=== PATIENT | male | born 1960 | race Caucasian/White ===

== ENCOUNTER 2018-08-26 08:25 | Inpatient (IN) ==
[2018-08-26] MEDS ORDERED: Chlorhexidine Gluconate 2% 1 Pack (2 Cloths) TOPICAL SCH (09:15)
[2018-08-26] MEDS ORDERED: Metoprolol Tartrate 25 MG Tablet PO SCH (09:15)
[2018-08-26] MEDS ORDERED: Sodium Chlor 0.9% Inj 250 ML ONE (09:54)
[2018-08-26] MEDS ORDERED: ceFAZolin 2 GM Premix Inj 2 GM/50 ML PIGGYBACK IV.SIG SCH (10:00)
[2018-08-26] MEDS ORDERED: Vancomycin Inj 1,000 MG in Sodium Chlor 0.9% Inj 250 ML IV.SIG SCH (10:00)
[2018-08-26] MEDS ORDERED: TRANEXAMIC ACID IV.SIG SCH (10:00)
[2018-08-26] MEDS ORDERED: SODIUM CHLOR 0.9% IV.SIG SCH (10:00)
[2018-08-26] MEDS ORDERED: Sodium Chlor 0.9% Inj 500 ML IV.SIG SCH (10:00)
[2018-08-26] MEDS ORDERED: Sodium Chlor 0.9% Inj 40 ML, Bupivacaine Liposo PF 1.3% Inj 20 ML, Bupivacaine/Epi PF 0... P-ARTICULR SCH ×3 (10:00)
[2018-08-26] MEDS ORDERED: Chlorhexidine 4% Topical 120 APPLIC/120 ML Bottle TOPICAL SCH (10:00)
[2018-08-26] MEDS ORDERED: Bupivacaine/Epinephrine Inj 0.25% 50 ML Vial ONE (10:32)
[2018-08-26] MEDS ORDERED: Post-op Orders (for Pharmacy) OTHER STA (13:23)
[2018-08-26] MEDS ORDERED: Bisacodyl 10 MG Supp RECTAL PRN (13:23)
[2018-08-26] MEDS ORDERED: Morphine Inj 4 MG/ML Vial IV.PUSH PRN (13:23)
--- NOTE | 2018-08-26 13:29 | P.OP ---
- Preoperative Diagnosis (1) Osteoarthritis of right knee - Postoperative Diagnosis (1) Osteoarthritis of right knee Date of procedure: 08/26/18 Procedure: Right total knee arthroplasty Anesthesia: GETA, regional, local Surgeon: Jorge Gonzalez MD Lead Data Entry Operator: Pricilla Diane PA-C Operation and Findings: EBL: 50 cc INDICATION: This patient presents with long-standing arthritis of the knee. Attachment record documents conservative measures. The patient now presents for surgical treatment. NOTE: Velásquez PA-C was present for the entire surgical procedure as my executive assistant. In my medical opinion her skill and care was necessary for proper management of this patient. TOURNIQUET TIME: 66 minutes COMPANY: [employer] FEMUR: Size 8, cruciate retaining TIBIA: Size 9, fixed-bearing PATELLA: 35 mm POLYETHYLENE INSERT: Kinematic retaining, 11 mm PROCEDURE: This patient was brought the operating room and anesthetized in the supine position. The patient was positioned supine on the table. The tourniquet was placed about the thigh, and the leg was scrubbed with alcohol followed by Hibiclens followed by ChloraPrep and draped sterilely. A timeout was done, and antibiotics were given. After exsanguination the tourniquet was inflated to 250 mmHg. An anterior incision was made and a median parapatellar arthrotomy was performed. The patella was released laterally and subluxed allowing freehand cut of the patella which was then sized. A metal cap was placed over the exposed patellar surface for protection. A pilot supervisor hole was placed in the distal femur allowing a 4 valgus cut removing 10 mm from the distal femur. Anterior posterior and chamfer cuts were made. The posterior stabilize osteotomy was made. The attention was directed to the tibia. Retractors were positioned. The external alignment guide was used allowing the lateral tibia to be used as referencing guide and cut utilizing an oscillating saw taking care to avoid any injury to the surrounding soft tissues. We allowed 1 degree of varus orientation. This was sized properly. Trial reduction showed that the insert fit nicely. The patient had range of motion extension 0 flexion 125. A medial release was not necessary. The bony surfaces prepared. On the back table 2 packets of methylmethacrylate were mixed. The components were cemented. Excess cement was removed. The tourniquet let down and hemostasis was controlled. The final plastic insert was inserted. Range of motion was the same as previously noted. A drain was brought through a separate stab incision. The arthrotomy was repaired with interrupted #1 Vicryl suture, subcutaneous tissue 2-0 Vicryl suture and skin with metallic keshia A sterile dressing was applied. Sponge counts, needle counts and instrument counts were all correct. The patient tolerated procedure well and was taken to recovery in satisfactory condition. FINDINGS: The first batch of cement was becoming hard prematurely. We mixed a second batch of cement for the femur. The overall alignment appeared to be satisfactory. There is no complication that was appreciated
--- NOTE | 2018-08-26 13:30 | P.DCO ---
- Physical Therapy Physical Therapy: Gait training (3 times per week for 2 weeks) Knee: Total knee Right Lower Extremity Weight Bearing: Weight bearing as tolerated - Nursing Dressing changes: Do not change dressing (Do not anticipate home health care nurse unless advised by physical therapy) - Certification Need for Home Health services: I have seen patient Chintan Friedman on 08/26/18. My clinical findings support the need for the requested home health care services because: Need for Home Health Services: High risk of falls Homebound Certification: I certify that my clinical findings support that this patient is homebound because: Homebound Certification: Unsteady gait/balance
[2018-08-26] MEDS ORDERED: fentaNYL Citrate Inj 100 MCG/2 ML Ampul ONE (14:00)
[2018-08-26] MEDS ORDERED: *Promethazine Inj 25 MG/ML Vial PERIprocedural use ONLY ONE (14:18)
--- NOTE | 2018-08-26 14:30 | XR ---
EXAM DATE: 08/26/2018 2:22 PM EST AGE/SEX: 58 years / Male INDICATIONS: Post op right knee replacement. CLINICAL DATA: This is the patient's initial encounter. Patient reports that signs and symptoms have been present for 1 day and indicates a pain score of 0/10. MEDICAL/SURGICAL HISTORY: None. None. COMPARISON: No prior exams available for comparison. FINDINGS: AP and lateral views of the knee were obtained and demonstrate the patient is status post arthroplast y. The femoral and tibial components are intact and in normal alignment. There are postoperative rodas ges involving the patella. Anterior soft tissue swelling and gas is noted as well as overlying surgic al skin keshia. CONCLUSION: Expected postsurgical changes status post arthroplasty. Electronically signed by: Xavi Matthews MD 08/26/2018 2:29 PM EST
[2018-08-26] MEDS ORDERED: *morphine SULFATE 4 MG/ML PERIprocedure ONLY ONE ×2 (14:41→15:17)
[2018-08-26] MEDS: ceFAZolin 1 GM Premix Inj 1 GM/50 ML PIGGYBACK IV.SIG SCH (17:48)
[2018-08-26] MEDS ORDERED: LOTEPREDNOL ETABONATE RIGHT EYE SCH (18:00)
[2018-08-26] MEDS ORDERED: Latanoprost 0.005% Opth Drops 2.5 ML Bottle RIGHT EYE SCH (18:00)
[2018-08-26] MEDS ORDERED: [UNRECOGNIZED DRUG - OTHER] RIGHT EYE SCH (18:00)
[2018-08-26] MEDS: Brimonidine 0.2% Opth Drops 5 ML Bottle RIGHT EYE SCH (18:37)
[2018-08-26] MEDS: Multivitamin/Minerals Therapeutic Tablet PO SCH (20:20)
[2018-08-26] MEDS: Senna/Docusate Sodium 8.6/50 MG Tablet PO SCH (20:20)
[2018-08-26] MEDS ORDERED: Temazepam 15 MG Capsule PO PRN (21:00)
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
[2018-08-27] MEDS: ceFAZolin 1 GM Premix Inj 1 GM/50 ML PIGGYBACK IV.SIG SCH ×2 (00:23→05:09)
[2018-08-27 05:22] VITALS: O2SAT 96
[2018-08-27 06:08] LABS: Hematocrit 34.4 % (39.0-51.0); Hemoglobin 11.7 gm/dL (13.0-17.0)
[2018-08-27] MEDS: Multivitamin/Minerals Therapeutic Tablet PO SCH (08:30)
[2018-08-27] MEDS: Senna/Docusate Sodium 8.6/50 MG Tablet PO SCH (08:30)
[2018-08-27] MEDS: Brimonidine 0.2% Opth Drops 5 ML Bottle RIGHT EYE SCH (08:32)
[2018-08-27] MEDS ORDERED: Allopurinol 300 MG Tablet PO SCH (09:00)
[2018-08-27] MEDS ORDERED: Fenofibrate 145 MG Tablet PO SCH (09:00)
[2018-08-27] MEDS ORDERED: Famotidine 20 MG Tablet PO SCH (09:00)
[2018-08-27] MEDS ORDERED: Meloxicam 15 MG Tablet PO SCH (09:00)
[2018-08-27] MEDS ORDERED: Lisinopril 5 MG Tablet PO SCH (09:00)
[2018-08-27 09:42] VITALS: BP 147/71; PULSE 77; RESP 20; TEMP 97.5
== END 2018-08-27 10:43 | disposition home health service (06) ==
LOC: HSDI 08:25 → N06 16:50
PROVIDERS: ADMIT Orthopaedic Surgery Orthopaedic Surgery of the Spine; ATTEND Orthopaedic Surgery Orthopaedic Surgery of the Spine
DX: M17.31 Unilateral post-traumatic osteoarthritis, right knee